=== PATIENT | female | born 1960 | race Caucasian/White ===

== ENCOUNTER 2017-03-30 19:27 | Inpatient (IN) | payer BC, OTHER ==
[~2017-03-30] VITALS: Ht 154.9 cm; Wt 70.8 kg
[2017-03-30 19:40] VITALS: BP_SYST 115
--- NOTE | 2017-03-30 19:49 | NUR ---
Patient triaged and placed in waiting room. VSS and patient appears in no acute distress at this time. Accompanied by daughter, awaiting available bed, and MD notified of need for MSE.
--- NOTE | 2017-03-30 21:29 | NUR ---
PT AMBULATORY TO ER CHAIR 1 FOR EVALUATION
[2017-03-30] MEDS ORDERED: NACL 0.9% 1,000 ML IV ONE (22:00)
--- NOTE | 2017-03-30 22:02 | NUR ---
Pt brought by family member, A&Ox4, pt c/o flu kami symptoms, N/V, body aches, cough , congestion, skin pink and warm, cap refill <3.
--- NOTE | 2017-03-30 22:04 | NUR ---
Radiology at bedside for CXR.
--- NOTE | 2017-03-30 22:15 | NUR ---
Cheyenne Sharma at bedside examining patient.
[2017-03-30] MEDS ORDERED: IPRATROPIUM/ALBUTEROL SULFATE 3 ML AMPUL.NEB INH ONE (22:30)
[2017-03-30] MEDS ORDERED: ALBUTEROL SULFATE 0.083% 2.5 MG/3 ML VIAL.NEB INH ONE (23:00)
[2017-03-30] MEDS ORDERED: methylPREDNISolone SOD SUCC/PF 62.5 MG/ML VIAL IVP ONE (23:00)
--- NOTE | 2017-03-30 23:05 | NUR ---
Sharon beckman in ED - 03/30/17 at 2306 by [email or web address] RT at bedside , pt on stable condition, report given to Richard SANDERS
--- NOTE | 2017-03-30 23:05 | NUR ---
RT at bedside , pt on stable condition, report given to Richard SANDERS
--- NOTE | 2017-03-30 23:05 | NUR ---
RT at bedside , pt on stable condition, report given to Richard SANDERS
--- NOTE | 2017-03-30 23:30 | NUR ---
Recieved report from Flaquita SANDERS. Will assume care at this time. Patient placed on 2L. Oxygen saturation 98% on 2L.
--- NOTE | 2017-03-31 00:23 | NUR ---
Patient moved to ED bed 4.
[2017-03-31 00:39] LABS: BASOPHILS % (AUTO) 0.1 % (0.0-2.0)
[2017-03-31 00:44] LABS: CALCIUM 8.3 mg/dL (8.4-11.0); CREATININE 0.96 mg/dL (0.55-1.30)
[2017-03-31 00:47] LABS: EOSINOPHILS % (AUTO) 0.1 % (0.0-4.0); HEMATOCRIT 35.9 % (36-48); HEMOGLOBIN 11.8 g/dL (12.0-16.0); LYMPHOCYTES # (AUTO) 5.1 K/uL (1.0-5.5); LYMPHOCYTES % (AUTO) 23.5 % (20.5-51.5); MEAN CORPUSCULAR HEMOGLOBIN 29 pg (27-31); MEAN CORPUSCULAR HGB CONC 33 % (32-36); MEAN CORPUSCULAR VOLUME 89 fL (79.0-98.0); MONOCYTES # (AUTO) 0.9 K/uL (0.0-1.0); MONOCYTES % (AUTO) 4.3 % (1.7-9.3); NEUTROPHILS # (AUTO) 15.9 K/uL (1.8-7.7); PLATELET COUNT (AUTO) 430 K/uL (130-430); RED BLOOD CELL COUNT(AUTO) 4.02 MIL/uL (4.2-6.2); WHITE BLOOD COUNT (AUTO) 21.9 K/uL (4.8-10.8)
[2017-03-31 00:58] LABS: ALBUMIN 2.7 g/dL (3.4-4.8); TOTAL BILIRUBIN 1.1 mg/dL (0.0-1.0)
[2017-03-31 01:02] LABS: POTASSIUM 2.5 mmol/L (3.5-5.1)
[2017-03-31] MEDS ORDERED: POTASSIUM CHLORIDE 20 MEQ/PKT PACKET PO ONE (01:30)
--- NOTE | 2017-03-31 01:30 | NUR ---
Patient resting quietly. No acute distress noted. Vital signs within normal range.
--- NOTE | 2017-03-31 01:40 | NUR ---
Patient will be admitted to care Dr. Cain. Admitted to Med/Surg unit. Will go to room when available Belongings list completed. Summary report printed. Report will be given at bedside. No available bed at this time. Awaiting call to transfer patient. No acute distress noted at this time. Vital signs within normal limits. Will continue to monitor.
[2017-03-31] MEDS ORDERED: LevALBUTEROL HCL 1.25 MG/0.5 ML *CONC.* VIAL.NEB (XOPENEX CONC.) INH SCH (01:45)
[2017-03-31] MEDS ORDERED: ACETAMINOPHEN 325 MG TABLET PO PRN (01:45)
[2017-03-31] MEDS ORDERED: ONDANSETRON HCL 4 MG/2 ML VIAL IVP PRN (01:45)
[2017-03-31] MEDS ORDERED: MORPHINE 2 MG/ML INJ. SYRINGE IVP PRN (01:45)
[2017-03-31] MEDS ORDERED: NACL 0.9% 1,000 ML IV ONE (02:45)
[2017-03-31 03:12] LABS: PHOSPHORUS 2.7 mg/dL (2.7-4.5)
[2017-03-31] MEDS ORDERED: ALBUTEROL SULFATE 0.083% 2.5 MG/3 ML VIAL.NEB INH ONE (03:30)
--- NOTE | 2017-03-31 03:30 | NUR ---
RT at bedside to administer breathing treatment.
--- NOTE | 2017-03-31 03:35 | NUR ---
Patient ambulatory to restroom.
[2017-03-31 04:09] LABS: CALCIUM 9.2 mg/dL (8.4-11.0); CREATININE 0.96 mg/dL (0.55-1.30); FREE T4 (FREE THYROXINE) 0.8 ng/dL (0.6-1.6); PHOSPHORUS 1.8 mg/dL (2.7-4.5); POTASSIUM 3.4 mmol/L (3.5-5.1); THYROID STIMULATING HORMONE 0.21 uIu/mL (0.34-4.82)
[2017-03-31 04:34] LABS: BILIRUBIN,URINE NEGATIVE (NEGATIVE); BLOOD, URINE 1+ (NEGATIVE); CLARITY/URINE CLEAR (CLEAR); COLOR,URINE YELLOW (YELLOW); GLUCOSE,URINE TRACE (NEGATIVE); KETONES,URINE NEGATIVE (NEGATIVE); LEUKOCYTE ESTERASE ,URINE NEGATIVE (NEGATIVE); NITRITE, URINE NEGATIVE (NEGATIVE); PH,URINE 5.5 (5.0-8.0); PROTEIN URINE TRACE (NEGATIVE)
[2017-03-31 04:38] LABS: BACTERIA,URINE FEW /HPF (None Seen); WBC,URINE 0-3 /HPF (0-3)
--- NOTE | 2017-03-31 05:00 | NUR ---
Patient resting quietly. No acute distress noted. Vital signs within normal range.
--- NOTE | 2017-03-31 06:00 | NUR ---
Medication reconciliation completed with information provided by Patient. Any prior medication reconciliation on file was reviewed and corrected.
--- NOTE | 2017-03-31 06:45 | NUR ---
RT at bedside to administer breathing treatment.
[2017-03-31] MEDS: LevALBUTEROL HCL 1.25 MG/0.5 ML *CONC.* VIAL.NEB (XOPENEX CONC.) INH PRN (06:50)
--- NOTE | 2017-03-31 07:15 | NUR ---
Endorsed care to Wade SANDERS.
--- NOTE | 2017-03-31 08:33 | NUR ---
Transfer of care report called to [facility].
--- NOTE | 2017-03-31 08:59 | NUR ---
ADMISSION NOTE Received patient from ER via carly, received report from Richard SANDERS. Patient admitted with diagnosis of PNA. Patient oriented to hospital routine, call light, toileting and safety-patient verbalized understanding.
--- NOTE | 2017-03-31 09:00 | NUR ---
Transfer to [facility]. IV present no sign or symptom of infiltration.
--- NOTE | 2017-03-31 09:00 | NUR ---
Patient will be admitted to care of DR. TYSON. Admitted to MEDSURG unit. Will go to room 108B. Belongings list completed. Summary report printed. Report will be given at bedside.
--- NOTE | 2017-03-31 09:15 | NUR ---
INITIAL NOTES PATIENT AWAKE IN BED. A/Ox4. ABLE TO MAKE NEEDS KNOWN. DENIES PAIN AT THIS TIME. NO ACUTE DISTRESS. NO SOB. RESPIRATION EVEN AND UNLABORED. SKIN WARM AND DRY TO TOUCH. IV SITE INTACT/PATENT/CLEAN/DRY. ALL NEEDS MET. INSTRUCTED PATIENT TO USE CALL LIGHT FOR ASSISTANCE, PATIENT EXPRESSED UNDERSTANDING. SITTING AT BEDSIDE. CONTINUE TO MONITOR
[2017-03-31 09:52] VITALS: BP_SYST 122
[2017-03-31] MEDS: DOCUSATE SODIUM 100 MG CAPSULE PO SCH ×2 (11:03→20:41)
[2017-03-31] MEDS: NACL 0.9% 1,000 ML IV SCH (11:10)
--- NOTE | 2017-03-31 11:35 | NUR ---
NOTES IV SITE TO LEFT FOREARM INFILTRATED. STARTED NEW IV TO LEFT WRIST, 22G, WITH GOOD BLOOD RETURN AND FLUSHES FREELY, PATIENT YVONNE PROCEDURE WELL. CONTINUE TO MONITOR. CALL LIGHT IN REACH. DAUGHTER ENRICO ALSO SITTING AT BEDSIDE
[2017-03-31 12:50] VITALS: BP_SYST 124
--- NOTE | 2017-03-31 13:30 | NUR ---
NOTES PATIENT IN NO ACUTE DISTRESS. NO C/O PAIN. IVF INFUSING, PATIENT YVONNE WELL. SKIN WARM AND DRY TO TOUCH. CONTINUE TO MONITOR. CALL LIGHT IN REACH
--- NOTE | 2017-03-31 15:30 | NUR ---
NOTES PATIENT SITTING IN BED ON PHONE. NO ACUTE DISTRESS. NO SOB. DENIES ANY PAIN. SKIN WARM AND DRY TO TOUCH. ASSISTED TO BATHROOM, YVONNE WELL. DAUGHTER SITTING AT BEDSIDE. ALL NEEDS MET. CONTINUE TO MONITOR. CALL LIGHT IN REACH
[2017-03-31 17:05] VITALS: BP_SYST 132
[2017-03-31] MEDS ORDERED: SIMETHICONE 80 MG TAB.CHEW PO PRN (17:30)
[2017-03-31] MEDS ORDERED: HYDROcodone/ACETAMIN 10-325 MG TAB PO PRN (17:30)
[2017-03-31] MEDS ORDERED: BISACODYL 10 MG/SUPPOSITORY RC PRN (17:30)
[2017-03-31] MEDS ORDERED: POTASSIUM CHLORIDE 20 MEQ TAB.PRT.SR PO PRN (17:30)
[2017-03-31] MEDS ORDERED: LORazepam 2 MG/ML VIAL IVP PRN (17:30)
[2017-03-31] MEDS ORDERED: ZOLPIDEM TARTRATE 5 MG TABLET PO PRN (17:30)
--- NOTE | 2017-03-31 17:30 | NUR ---
NOTES PATIENT SITTING IN BED TALKING TO DAUGHTER WHOM IS AT BEDSIDE. NO ACUTE DISTRESS. NO SOB. IVF INFUSING TO LEFT WRIST, YVONNE WELL. SKIN WARM AND DRY TO TOUCH. ASSISTED PATIENT TO BATHROOM, YVONNE WELL. ALL NEEDS MET. CONTINUE TO MONITOR. CALL LIGHT IN REACH
--- NOTE | 2017-03-31 18:41 | NUR ---
CLOSING NOTE PATIENT AWAKE IN BED. ABLE TO MAKE NEEDS KNOWN. NO ACUTE DISTRESS. NO SOB. IVF INFUSING TO LEFT WRIST, YVONNE WELL. SKIN WARM AND DRY TO TOUCH. ALL NEEDS MET AT THIS TIME. DAUGHTER ENRICO AT BEDSIDE WITH PATIENT WAITING TO SPEAK TO REGARDING PATIENT STATUS AND A NOTE FOR AIRLINES d/t PATIENT MISSING FLIGHT BACK TO [place] TOMORROW. WILL ENDORSE TO ONCOMING SHIFT
--- NOTE | 2017-03-31 19:45 | NUR ---
INITIAL NOTE Patient resting on the bed. No acute distress. Respiration even and unlabored. AAO x 4. Denied of pain. Skin warm and dry to touch. IV intact to left wrist, no redness, no swelling, no drainage. On NS at 60ml/hr, infusing well. Discussed the safety issue, use call light when need help, and plan of care, verbally understanding. Family at bedside. Safety measure maintained. Bed in low position, side rails up. Call light within reached. Will continue to monitor.
[2017-03-31 20:00] VITALS: BP_SYST 120
--- NOTE | 2017-03-31 21:40 | NUR ---
ROUND Patient resting on the bed. No acute distress. Respiration even and unlabored. IV intact, IVF infusing well. Safety measure maintained. Bed in low position, side rails up. Call light within reached. Continue to monitor.
--- NOTE | 2017-03-31 23:35 | NUR ---
ROUND Patient resting on the bed. No acute distress. Respiration even and unlabored. IV intact, IVF infusing well. Safety measure maintained. Call light within reached. Bed in low position, side rails up. Continue to monitor.
[2017-04-01] VITALS: BP_SYST 128
[2017-04-01] MEDS ORDERED: INSULIN REGULAR, HUMAN 100 UNITS/ML, 10 ML VIAL (novoLIN R) SUBCUT PRN (00:15)
--- NOTE | 2017-04-01 01:31 | NUR ---
ROUND Patient resting on the bed with eyes closed. No acute distress. Respiration even and unlabored. IV intact, IVF infusing well. Safety measure maintained. Bed in low position, side rails up. Call light within reached. Continue to monitor.
[2017-04-01] MEDS: NACL 0.9% 1,000 ML IV SCH (02:52)
--- NOTE | 2017-04-01 03:50 | NUR ---
ROUND Patient resting on the bed with eyes closed. No acute distress. Respiration even and unlabored. IV intact, IVF infusing well. Safety measure maintained. Call light within reached. Bed in low position, side rails up. Continue to monitor.
--- NOTE | 2017-04-01 05:12 | NUR ---
ROUND Patient resting on the bed with eyes closed. No acute distress. IV intact, IVF infusing well. Safety measure maintained. Call light within reached. Bed in low position, side rails up. Continue to monitor.
[2017-04-01] MEDS: PIPERACILLIN/TAZO 3.375/DEX-IS 50 ML IV SCH ×2 (06:00→12:17)
[2017-04-01] MEDS ORDERED: PIPERACILLIN/TAZOBACTAM 3.375 GM/VIAL (ZOSYN) IV ONE (06:06)
[2017-04-01 06:07] LABS: HEMOGLOBIN A1C 5.4 % (4.8-5.6)
--- NOTE | 2017-04-01 06:40 | NUR ---
CLOSING NOTE Patient resting on the bed. No acute distress. Respiration even and unlabored. IV intact, IVF infusing well. All needs met. Hourly rounding during shift. Safety measure maintained. Bed in low position, side rails up. Call light within reached. Will endorse to morning shift nurse.
--- NOTE | 2017-04-01 07:20 | NUR ---
Initial notes: patient on bed sleeping. Stable. I.V. access patent. SAfety mesures in placed. Call light within reach. Report received at bedside.
[2017-04-01 07:57] LABS: BASOPHILS # (AUTO) 0.1 K/uL (0.0-0.2); BASOPHILS % (AUTO) 0.5 % (0.0-2.0); HEMOGLOBIN 10.7 g/dL (12.0-16.0); LYMPHOCYTES % (AUTO) 13.2 % (20.5-51.5); MEAN CORPUSCULAR HEMOGLOBIN 31 pg (27-31); MEAN CORPUSCULAR HGB CONC 35 % (32-36); MEAN CORPUSCULAR VOLUME 89 fL (79.0-98.0); MONOCYTES % (AUTO) 4.4 % (1.7-9.3); NEUTROPHILS # (AUTO) 18.7 K/uL (1.8-7.7); NEUTROPHILS % (AUTO) 81.9 % (40.0-70.0); PLATELET COUNT (AUTO) 432 K/uL (130-430); RED BLOOD CELL COUNT(AUTO) 3.47 MIL/uL (4.2-6.2); RED CELL DISTRIBUTION WIDTH 13.2 % (9.0-15.0); WHITE BLOOD COUNT (AUTO) 22.8 K/uL (4.8-10.8)
[2017-04-01 08:00] VITALS: BP_SYST 118
[2017-04-01 08:08] LABS: CALCIUM 8.7 mg/dL (8.4-11.0); CREATININE 0.78 mg/dL (0.55-1.30); POTASSIUM 3.9 mmol/L (3.5-5.1)
[2017-04-01 08:22] LABS: PHOSPHORUS 2.7 mg/dL (2.7-4.5)
[2017-04-01] MEDS: DOCUSATE SODIUM 100 MG CAPSULE PO SCH (08:52)
--- NOTE | 2017-04-01 08:53 | NUR ---
rounds: patient on bed observed coughing. no distress noted.
[2017-04-01] MEDS: LevALBUTEROL HCL 1.25 MG/0.5 ML *CONC.* VIAL.NEB (XOPENEX CONC.) INH PRN (09:08)
--- NOTE | 2017-04-01 11:00 | NUR ---
Maykel rounds: Seen by Dr. Cain with new order.
[2017-04-01] MEDS ORDERED: LEVO750T45 PO (12:39)
[2017-04-01] MEDS ORDERED: GUAI600T86 PO (12:39)
[2017-04-01] MEDS ORDERED: CODE118S2 PO (12:39)
[2017-04-01 13:07] VITALS: BP_SYST 104
--- NOTE | 2017-04-01 13:36 | NUR ---
ATTENDING MD, DR TYSON WAS CALLED, RE: PRESCRIPTION FOR PHENERGAN WITH CODEINE. SPOKE TO LEONILA
--- NOTE | 2017-04-01 14:00 | NUR ---
D/C Patient Patient given medication reconciliation form and D/C instructions. Exit Care provided. Patient verbalized understanding. MD discussed with patient the results and treatment provided. Ambulatory with steady gait for discharge to home. Patient in stable condition, ID band removed. IV catheter removed, intact and dressing applied, no active bleeding. Rx of levaquin and mucinex given. Patient educated on pain management. All belongings sent with patient.
[2017-04-02] MEDS ORDERED: ALBU2.5V7 INH (15:54)
[2017-04-02] MEDS ORDERED: BUDE180A3 IH (15:54)
== END 2017-04-01 14:30 | disposition home or self-care (01) | DRG 871 ==
LOC: SED 19:27 → SMU 03-31 01:40
PROVIDERS: ADMIT Family Medicine; ATTEND Family Medicine
DX: A41.9 Sepsis, unspecified organism (principal); N17.0 Acute kidney failure with tubular necrosis; J18.9 Pneumonia, unspecified organism; E87.1 Hypo-osmolality and hyponatremia; J45.909 Unspecified asthma, uncomplicated; E87.6 Hypokalemia; E83.42 Hypomagnesemia
CPT/HCPCS: 36415; 71045; 80048; 80053; 80061; 81000-TC; 82150-TC; 82962; 83036; 83605; 83690-TC; 83735-TC; 83880; 84100-TC; 84436; 84439; 84443-TC; 84479; 85025; 86710; 87040-TC; 94640; 96365; 96375; 99285; J1956; J2543; J2930; J7030; J7060